=== PATIENT | female | born 1955 | race Caucasian/White ===

== ENCOUNTER → 2018-01-11 | Outpatient (CLI) | payer MEDICARE, MEDICAID ==
--- NOTE | 2018-01-11 16:21 | WOMENS IMAGING REPORT ---
EXAM DESCRIPTION: 3D SCREENING MAMMO BILAT COMPLETED DATE/TIME: 01/11/2018 2:27 pm REASON FOR STUDY: BILATERAL SCREENING MAMMO 3D/Z12.31 Z12.31 ENCNTR SCREEN MAMMOGRAM FOR MALIGNANT NEOPLASM OF APOLINAR COMPARISON: None. TECHNIQUE: Standard craniocaudal and mediolateral oblique views of each breast recorded using digita l acquisition and breast tomosynthesis. LIMITATIONS: None. FINDINGS: No masses, calcifications or architectural distortion. No areas of suspicion. Read with the assistance of CAD. .[facility] - R2 Cenova Version 1.3 .[facility] Imaging - R2 Cenova Version 1.3 .[facility] Imaging - R2 Cenova Version 2.4 .[facility] - R2 Cenova Version 2.4 .[facility] - R2 Motor Vehicle Examiner Version 9.2 IMPRESSION: NORMAL MAMMOGRAM. BIRADS 1. BREAST DENSITY: b. There are scattered areas of fibroglandular density. BIRAD: 1 NEGATIVE RECOMMENDATION: ROUTINE SCREENING Please continue yearly bilateral screening tomosynthesis in December 2018 COMMENT: The patient has been notified of the results by letter per SA requirements. Additional no tification policies are in place for contacting patient with suspicious or incomplete findings. Quality ID #[id number]: The [employer] recommends an annual screening mammogram for women aged 40 years or over. This facility utilizes a reminder system to ensure that all patients receive reminder letters, and/or direct phone calls for appointments. This includes reminders for routine scr eening mammograms, diagnostic mammograms, or other Breast Imaging Interventions when appropriate. Th is patient will be placed in the appropriate reminder system. The [employer] (ACR) has developed recommendations for screening MRI of the breast s in certain patient populations, to be used in conjunction with mammography. Breast MRI surveillanc e may be appropriate for women with more than 20% lifetime risk of developing breast cancer as deter mined by genetic testing, significant family history of the disease, or history of mantle radiation f or Hodgkins Disease. ACR Practice Guidelines 2008. DBT Technology DBT is a type of tomographic mammography. With conventional mammography, overlapping breast tissue ma y make lesions difficult to detect, even with good compression. DBT uses an x-ray tube that rotates a round the breast, taking images at different angles. These images are then combined to create thin sl ices of the breast that the radiologist can view as a 3D reconstruction. The [employer] unit can perform full-field digital mammograms (2D imaging); or DBT (3D imaging); or both, in a combination mode that quickly performs both the mammogram and the tomosynthesis scan while the breast is still compressed. PQRS 6045F: Fluoroscopic imaging is not utilized for breast tomosynthesis. TECHNICAL DOCUMENTATION: FINDING NUMBER: (1) ASSESSMENT: (1) JOB ID: [id number] [employer]- All Rights Reserved Reading location - IP/workstation name: [facility]
== END ==
LOC: WI 13:22
PROVIDERS: ATTEND Internal Medicine
DX: Z12.31 Encounter for screening mammogram for malignant neoplasm of breast (principal)
CPT/HCPCS: 77063; 77067

== ENCOUNTER 2018-04-13 17:33 | Emergency (ER) | payer MEDICARE, MEDICAID ==
[2018-04-13 17:44] VITALS: BP 154/80
[2018-04-13] MEDS ORDERED: ACETAMINOPHEN 325 MG TABLET PO ONE (18:07)
--- NOTE | 2018-04-13 18:12 | ER Document Report ---
HPI - HPI Time Seen by Provider: 04/13/18 17:54 Pain Level: 3 Notes: Patient is a 62-year-old female with a history of hypertension and chronic neck/back pain with history of fusions who presents to the emergency department complaining of injuring her head, right side mid back, and left hand after falling on pavement prior to arrival. Patient states that her dog was trying to run away from her when she had a lesion in somehow lost her footing in the process of falling down on her buttock and then balancing her head off of the ground thereafter. She is not on any blood thinning medications. Patient did not have any loss of consciousness or nausea/vomiting. She has been able to ambulate without any difficulties. Patient states that she does have some swelling to the top back of her head. Patient states that she also fell hurt her palm trying to stop her fall. No other concerns or complaints. Denies any fever, neck pain, changes in vision/speech/mentation/hearing, URI, sore throat, chest pain, palpitations, syncope, cough, shortness of breath, wheeze, dyspnea, abdominal pain, nausea/vomiting/diarrhea, urinary retention, dysuria, hematuria, loss of control of bowel or bladder, numbness/tingling, saddle anesthesia, muscle paralysis/weakness, or rash. - ROS Systems Reviewed and Negative: Yes All other systems reviewed and negative - CONSTITUTIONAL Constitutional: DENIES: Fever, Chills Past Medical History - Social History Smoking Status: Current Every Day Smoker Frequency of alcohol use: None Drug Abuse: None Family History: Reviewed & Not Pertinent Patient has suicidal ideation: No Patient has homicidal ideation: No - Past Medical History Cardiac Medical History: Reports: Hx Hypertension Renal/ Medical History: Denies: Hx Peritoneal Dialysis Past Surgical History: Reports: Hx Cholecystectomy, Hx Orthopedic Surgery - back surgery, neck and b/l wrist Vertical Provider Document - CONSTITUTIONAL Agree With Documented VS: Yes Notes: PHYSICAL EXAMINATION: accompanied by female nurseKelsea GENERAL: Well-appearing, well-nourished and in no acute distress. A&Ox4. Answers questions appropriately. HEAD: There is a small hematoma noted to the posterior superior head. + associated tenderness. No galloway sign EYES: Pupils equal round and reactive to light, extraocular movements intact, sclera anicteric, conjunctiva are normal. No raccoon eyes/entrapment. No tenderness. ENT: EAC clear b/l. TM's intact b/l without erythema, fluid, or perforation. Nares patent and without discharge. oropharynx clear without exudates. No tonsilar hypertrophy or erythema. Moist mucous membranes. No sinus tenderness. No hemotympanum/CSF discharge. NECK: Normal range of motion, supple without lymphadenopathy. No rigidity. No midline tenderness. Chest: no ecchymosis. No flail chest. equal rise/fall. Non-tender LUNGS: Breath sounds clear to auscultation bilaterally and equal. No wheezes rales or rhonchi. HEART: Regular rate and rhythm without murmurs, rubs, gallops. ABDOMEN: Soft, nontender, nondistended abdomen. No guarding, no rebound. Normal bowel sounds present. No ecchymosis. Musculoskeletal: Ext's b/l: FROM to passive/active. Strength 5+/5. No deficits noted. + tenderness to the proximal palm left hand with small ecchymosis noted to it. No other bony tenderness of extremities. N/V intact distal. Back: FROM to passive/active. Strength 5+/5. No vertebral point tenderness, stepoffs, or deformities. No other bony tenderness or ecchymosis. SLR negative b/l. + tenderness to the rt thoracic back. Extremities: No cyanosis, clubbing, or edema b/l. Peripheral pulses 2+. Capillary refill less than 2 seconds. NEUROLOGICAL: NIH 0. GCS 15. Cranial nerves grossly intact. Normal speech, normal gait. Normal sensory, motor exams. Reflexes 2+ b/l. MAX's negative. Pronator drift negative. Heel/chun, finger/nose wnl. Rhomberg negative. PSYCH: Normal mood, normal affect. SKIN: Warm, Dry, normal turgor, no rashes or lesions noted. - INFECTION CONTROL TRAVEL OUTSIDE OF THE [place] IN LAST 30 DAYS: No Course - Re-evaluation Re-evalutation: 04/13/18 19:13 Patient is an afebrile, well-hydrated, 62-year-old female who presents to the emergency department with a head contusion as well as pain to her hand, arm, buttock, and thoracic back. Vitals are acceptable without significant tachycardia, tachypnea, or hypoxia. PE is otherwise unremarkable for any focal neurological deficits, neurovascular, mass, obvious tendon/leg rupture, obvious fracture/dislocation, septic joint. CT scans and x-rays were unremarkable for any acute pathology. See reports. Patient was given Tylenol p.o. Patient is nontoxic-appearing and is tolerating p.o. without difficulty. She is able to ambulate and weight-bear without difficulties. No other labs or imaging warranted at this time based on H&P. NIH 0, GCS 15, cranial nerves grossly intact. Low suspicion for any meningitis, fracture, expanding/ruptured AAA, cauda equina syndrome, epidural mass lesion/abscess, herniated disc causing severe spinal stenosis, acute intracranial process, or other systemic infection at this time. Patient is aware that this condition can change from initial presentation and that she needs monitor symptoms closely for any acute changes. Pt given [place] dispense. Conservative measures otherwise for symptoms. Recheck with your PCM in 2-3 days. Consider consult with orthopedic/physical therapy. Return to the ED with any worsening/concerning symptoms otherwise as reviewed in discharge. Patient is in agreement. - Vital Signs Vital signs: Temp Pulse Resp BP Pulse Ox 98.2 F 94 18 154/80 H 98 04/13/18 17:43 04/13/18 17:43 04/13/18 17:43 04/13/18 17:43 04/13/18 17:43 Discharge - Discharge Clinical Impression: Left hand pain, Buttock pain, Right arm pain Head injury Qualifiers: Encounter type: initial encounter Qualified Code(s): S09.90XA - Unspecified injury of head, initial encounter Right-sided thoracic back pain Qualifiers: Chronicity: acute Qualified Code(s): M54.6 - Pain in thoracic spine Condition: Stable Disposition: HOME, SELF-CARE Instructions: Head Injury Precautions ([facility]) Additional Instructions: Rest, Ice/cool compress, elevation Tylenol/ibuprofen as needed Light stretches daily Strength exercises as able Moist heat and massage may help F/u with your PCP in 2-3 days for a recheck Consider consult(s) with Neurology/orthopedics for ongoing/worsening symptoms Return to the ED with any worsening symptoms and/or development of fever, h eadache, changes in behavior/mentation/vision/speech, chest pain, palpitations, syncope, shortness of breath, trouble breathing, abdominal pain, n/v/d, blood in stool/urine, loss of control of bowel/bladder, urinary retention, muscle weakness/paralysis, saddle anesthesia, numbness/tingling, or other worsening symptoms that are concerning to you. Forms: Elevated Blood Pressure, Smoking Cessation Education Referrals: DIANE MCCORD MD [Primary Care Provider] - Follow up as needed [facility] [Provider Group] - Follow up as needed
--- NOTE | 2018-04-13 18:36 | RADIOLOGY REPORT (SQ) ---
EXAM DESCRIPTION: CT HEAD WITHOUT COMPLETED DATE/TIME: 04/13/2018 6:22 pm REASON FOR STUDY: injury s/p fall COMPARISON: None. TECHNIQUE: Axial images acquired through the brain without intravenous contrast. Images reviewed wi th bone, brain and subdural windows. Images stored on PACS. All CT scanners at this facility use dose modulation, iterative reconstruction, and/or weight based d osing when appropriate to reduce radiation dose to as low as reasonably achievable (ALARA). [facility]: Dose Right [facility]: CareDose [facility]: Dose Right [facility]: Teradose 4D [facility]: [employer] RADIATION DOSE: CT Rad equipment meets quality standard of care and radiation dose reduction techniq ues were employed. CTDIvol: 53.2 mGy. DLP: 1044 mGy-cm. mGy. LIMITATIONS: None. FINDINGS: VENTRICLES: Normal size and contour. CEREBRUM: No masses. No hemorrhage. No midline shift. No evidence for acute infarction. Normal gra y/white matter differentiation. No areas of low density in the white matter. CEREBELLUM: No masses. No hemorrhage. No alteration of density. No evidence for acute infarction. EXTRAAXIAL SPACES: No fluid collections. No masses. ORBITS AND GLOBE: No intra- or extraconal masses. Normal contour of globe without masses. CALVARIUM: No fracture. PARANASAL SINUSES: No fluid or mucosal thickening. SOFT TISSUES: Mild right parietal soft tissue swelling. OTHER: No other significant finding. IMPRESSION: No acute intracranial findings. EVIDENCE OF ACUTE STROKE: NO. COMMENT: Quality ID # [id number]: Final reports with documentation of one or more dose reduction techniques (e.g., Automated exposure control, adjustment of the mA and/or kV according to patient size, use of iterative reconstruction technique) TECHNICAL DOCUMENTATION: JOB ID: [id number] [place]-72 2010 [employer]- All Rights Reserved Reading location - IP/workstation name: [employer]
--- NOTE | 2018-04-13 18:40 | RADIOLOGY REPORT (SQ) ---
EXAM DESCRIPTION: CT CERVICAL SPINE WITHOUT COMPLETED DATE/TIME: 04/13/2018 6:22 pm REASON FOR STUDY: injury s/p fall COMPARISON: None. TECHNIQUE: Axial images acquired through the cervical spine without intravenous contrast. Images re viewed with lung, soft tissue and bone windows. Reconstructed coronal and sagittal MPR images review ed. Images stored on PACS. All CT scanners at this facility use dose modulation, iterative reconstruction, and/or weight based d osing when appropriate to reduce radiation dose to as low as reasonably achievable (ALARA). [facility]: Dose Right [facility]: CareDose [facility]: Dose Right [facility]: Teradose 4D [facility]: [employer]Hand RADIATION DOSE: CT Rad equipment meets quality standard of care and radiation dose reduction techniq ues were employed. CTDIvol: 22.0 mGy. DLP: 440 mGy-cm. mGy. LIMITATIONS: None. FINDINGS: ALIGNMENT: Anatomic. MINERALIZATION: Normal. VERTEBRAL BODIES: No fractures or dislocation. DISCS: Multilevel disc space narrowing with osteophytes, greatest at the C6-7 level. . FACETS, LATERAL MASSES, POSTERIOR ELEMENTS: Facet arthropathy. No fractures. No dislocation. No ac josh findings. HARDWARE: Anterior fusion hardware at the C5-6 levels. VISUALIZED RIBS: No fractures. LUNG APICES AND SOFT TISSUES: No significant or acute findings. OTHER: No other significant finding. IMPRESSION: CHRONIC DEGENERATIVE CHANGES. NO ACUTE FINDINGS.Anterior fusion hardware at the C5-6 le vels. TECHNICAL DOCUMENTATION: JOB ID: [id number] [place]-72 Quality ID # [id number]: Final reports with documentation of one or more dose reduction techniques (e.g., Au tomated exposure control, adjustment of the mA and/or kV according to patient size, use of iterative reconstruction technique) 2010 [employer] All Rights Reserved Reading location - IP/workstation name: [email or web address]'s in [employer]
--- NOTE | 2018-04-13 18:53 | RADIOLOGY REPORT (SQ) ---
EXAM DESCRIPTION: HAND LEFT 3 VIEWS COMPLETED DATE/TIME: 04/13/2018 6:39 pm REASON FOR STUDY: injury s/p fall COMPARISON: None. EXAM PARAMETERS: NUMBER OF VIEWS: Three views. TECHNIQUE: AP, lateral and oblique radiographic images acquired of the left hand. LIMITATIONS: None. FINDINGS: MINERALIZATION: Normal. BONES: No acute fracture or dislocation. Mild osteoarthritis in the interphalangeal joints and 1st c arpometacarpal joint. No worrisome bone lesions. JOINTS: No effusion. SOFT TISSUES: No significant soft tissue swelling. No radiopaque foreign body. OTHER: No other significant finding. IMPRESSION: NO FRACTURE. TECHNICAL DOCUMENTATION: JOB ID: [id number] [place]-72 2010 [employer]- All Rights Reserved Reading location - IP/workstation name: [employer]
--- NOTE | 2018-04-13 18:53 | RADIOLOGY REPORT (SQ) ---
EXAM DESCRIPTION: HUMERUS RIGHT COMPLETED DATE/TIME: 04/13/2018 6:39 pm REASON FOR STUDY: pain s/p fall COMPARISON: None. NUMBER OF VIEWS: Two views. TECHNIQUE: Two radiographic images were acquired of the right humerus to include elbow and shoulder in at least one projection. LIMITATIONS: None. FINDINGS: MINERALIZATION: Normal. BONES: No acute fracture or dislocation. No worrisome bone lesions. SOFT TISSUES: No obvious swelling or foreign body. OTHER: No other significant finding. IMPRESSION: No fracture. TECHNICAL DOCUMENTATION: JOB ID: [id number] [place]-72 2010 [employer]- All Rights Reserved Reading location - IP/workstation name: [email or web address]
--- NOTE | 2018-04-13 18:58 | RADIOLOGY REPORT (SQ) ---
EXAM DESCRIPTION: PELVIS AP COMPLETED DATE/TIME: 04/13/2018 6:39 pm REASON FOR STUDY: pain s/p fall COMPARISON: None. NUMBER OF VIEWS: One view TECHNIQUE: AP Pelvis LIMITATIONS: None. FINDINGS: MINERALIZATION: Normal. HIPS: No acute fracture or dislocation. No worrisome bone lesions. PELVIS AND SACRUM: No acute fracture or dislocation. No worrisome bone lesions. PUBIS AND ISCHIUM: No acute fracture. LOWER LUMBAR SPINE: There is lumbar fusion hardware, L3-L5. SOFT TISSUES: No findings. OTHER: No other significant finding. IMPRESSION: No fracture identified. COMMENT: Pelvic fractures are often occult on plain radiographs. If strong clinical suspicion for f racture, recommend CT or MR. TECHNICAL DOCUMENTATION: JOB ID: [id number] [place]-72 2010 [employer]- All Rights Reserved Reading location - IP/workstation name: [email or web address]
--- NOTE | 2018-04-13 19:00 | RADIOLOGY REPORT (SQ) ---
EXAM DESCRIPTION: T SPINE AP/LAT COMPLETED DATE/TIME: 04/13/2018 6:39 pm REASON FOR STUDY: injury s/p fall COMPARISON: None. NUMBER OF VIEWS: Two views. TECHNIQUE: AP and lateral radiographic images acquired of the thoracic spine. LIMITATIONS: None. FINDINGS: MINERALIZATION: Normal. ALIGNMENT: Normal. No significant scoliosis. VERTEBRAE: No fracture or bone lesion. Maintained height, normal segmentation. DISCS: Multilevel disc space narrowing with osteophytes. HARDWARE: None in the spine. MEDIASTINUM AND SOFT TISSUES: Normal heart size and aortic contour. No soft tissue abnormality. VISUALIZED LUNG LOPEZ: Clear. OTHER: No other significant finding. IMPRESSION: SPONDYLOSIS WITHOUT BONE LESION OR FRACTURE. TECHNICAL DOCUMENTATION: JOB ID: [id number] [place]-72 2010 [employer]- All Rights Reserved Reading location - IP/workstation name: [employer]
[2018-04-13] MEDS ORDERED: HYDROCODONE/ACETAMINOPHEN 5-325 MG (6 TAB/ER DISP) PO PRN (19:18)
== END 2018-04-13 19:30 | disposition home or self-care (01) ==
LOC: ER 17:33
DX: S09.90XA Unspecified injury of head, initial encounter (principal); R22.0 Localized swelling, mass and lump, head; M54.6 Pain in thoracic spine; M79.642 Pain in left hand; M79.10 Myalgia, unspecified site; M79.601 Pain in right arm; M54.2 Cervicalgia; M54.9 Dorsalgia, unspecified; I10 Essential (primary) hypertension; G89.29 Other chronic pain; W19.XXXA Unspecified fall, initial encounter; F17.200 Nicotine dependence, unspecified, uncomplicated
CPT/HCPCS: 99284; 73130; 73060; 72170; 72070; 70450; 72125; A9270 ×2

== ENCOUNTER 2018-08-08 18:57 | Emergency (ER) | payer MEDICARE, MEDICAID ==
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
[2018-08-08] MEDS ORDERED: NEOMY/BACITRAC ZN/POLY OINT 15 GM TP ONE (20:15)
[2018-08-08] MEDS ORDERED: DIPH/PERTUSS(ACELL)/TETANUS VAC/PF 0.5 ML SYR (>=10YO) IM ONE (20:15)
--- NOTE | 2018-08-08 20:25 | ER Document Report ---
Addendum entered and electronically signed by DEMIAN RIVERA PA-C 08/08/18 20:49: Discharge - Discharge Clinical Impression: Abrasion or friction burn of buttock with infection Condition: Good Disposition: HOME, SELF-CARE Instructions: [place] ([facility]), Wound Infection ([facility]) Prescriptions: Oxycodone HCl/Acetaminophen [Percocet 5-325 mg Tablet] 1 tab PO Q6HP PRN #15 tablet PRN Reason: Cephalexin Monohydrate [Keflex 500 mg Capsule] 500 mg PO Q6H 40 Days #10 capsule Cephalexin Monohydrate [Keflex 500 mg Capsule] 500 mg PO Q6H 10 Days #40 capsule Referrals: DIANE MCCORD MD [Primary Care Provider] - 08/10/18 Original Note: ED General - General Chief Complaint: Thermal Burn Stated Complaint: BURN Time Seen by Provider: 08/08/18 19:10 Primary Care Provider: DIANE MCCORD MD [Primary Care Provider] - Follow up as needed Mode of Arrival: Ambulatory Information source: Patient TRAVEL OUTSIDE OF THE [place] IN LAST 30 DAYS: No - HPI Patient complains to provider of: Left buttock burn Onset: Last week Onset/Duration: Gradual Quality of pain: Cramping Severity: Severe Pain Level: 4 Associated symptoms: denies: Chills, Fever Exacerbated by: Sitting Relieved by: Denies Similar symptoms previously: No Recently seen / treated by doctor: No Notes: 63-year-old white female coming in today with left buttock burn. 1 week ago was laying on a heating pad. States she was on it for about an hour. Shortly after she realized that she had developed a blister on her left buttock. Apparently the blister eventually drained itself and patient thought that it was getting better and now on his started getting extremely tender and warm. Patient does not have any diabetes nor does she have any other immune compromise. She denies having fevers and shaking chills. - Related Data Allergies/Adverse Reactions: Sulfa (Sulfonamide Antibiotics) Allergy (Verified 04/13/18 18:04) Past Medical History - General Information source: Patient - Social History Smoking Status: Never Smoker Frequency of alcohol use: None Drug Abuse: None Lives with: Family Family History: Reviewed & Not Pertinent Patient has suicidal ideation: No Patient has homicidal ideation: No - Past Medical History Cardiac Medical History: Reports: Hx Hypertension Renal/ Medical History: Denies: Hx Peritoneal Dialysis Past Surgical History: Reports: Hx Cholecystectomy, Hx Orthopedic Surgery - back surgery, neck and b/l wrist Review of Systems - Review of Systems Notes: Constitutional: No fevers. No chills. EENT: No eye redness. No eye pain. No ear pain. No sore throat. Cardiovascular: No chest pain. No palpitations. Respiratory: No cough. No shortness of breath. No respiratory distress. Gastrointestinal: No abdominal pain. No nausea, vomiting, or diarrhea. Genitourinary: Atraumatic. No lesions. No pain. No discharge. Musculoskeletal: Atraumatic. No swelling. No deformities. Skin: Burn to left buttock Lymphatic: No swollen lymph nodes. Neurologic: No headache. No syncope. Psychiatric: No suicidal or homicidal ideation. Physical Exam - Vital signs Vitals: Temp Pulse Resp BP Pulse Ox 98.1 F 100 16 141/77 H 97 08/08/18 19:03 08/08/18 19:03 08/08/18 19:03 08/08/18 19:03 08/08/18 19:03 - Notes Notes: General: Well-developed, well-nourished. In no acute distress. Non-toxic appearing. Cardiac: Well-perfused. Regular rate and rhythm. No murmurs, rubs, or gallops. Pulmonary: No respiratory distress. No cyanosis. Bilateral lung fiels are clear to auscultation. Abdominal: Non-distended. Non-rigid. Bowels sounds are present in all four quadrants. No guarding or rebound. HEENT: Head is atraumatic. Conjunctivae not reddened. No tearing. PERRL. EOMI. Orbits atraumatic. No periorbital swelling or erythema. Oropharynx is without erythema, swelling, or exudates. Neck: Supple. No adenopathy. No meningismus. Dermatologic: Oval-shaped ulcer to left lateral buttock it was 2 cm wide by 4 cm tall. There is a erythematous base. And there is a scab covering the top. There is no subcu emphysema or crepitus on palpation. No suspicion for necrotizing fasciitis. No lymphangitis Chest: Atraumatic. No chest wall tenderness to palpation. Musculoskeletal: Moves all extremities well. No range of motion deficits. no muscular or joint tenderness. No paraspinal muscle tenderness. no midline spinal tenderness or step-off. Genitourinary: Examination deferred Neurologic: No gross neurologic deficits. Psychiatric: Normal mood. Course - Re-evaluation Re-evalutation: 08/08/18 20:35 We will update the patient's Tdap. Put some Neosporin and nonstick dressing on the wound. We will start her on Keflex empirically. We will follow her up with her doctor on Thursday for recheck. - Vital Signs Vital signs: Temp Pulse Resp BP Pulse Ox 98.1 F 100 16 141/77 H 97 08/08/18 19:03 08/08/18 19:03 08/08/18 19:03 08/08/18 19:03 08/08/18 19:03 Discharge - Discharge Clinical Impression: Abrasion or friction burn of buttock with infection Condition: Good Disposition: HOME, SELF-CARE Instructions: [place] ([facility]), Wound Infection ([facility]) Prescriptions: Cephalexin Monohydrate [Keflex 500 mg Capsule] 500 mg PO Q6H 40 Days #10 capsule Referrals: DIANE MCCORD MD [Primary Care Provider] - 08/10/18
[2018-08-08] MEDS ORDERED: CEPHALEXIN 500 MG CAPSULE PO ONE (20:35)
[2018-08-08] MEDS ORDERED: BACITRACIN ZINC OINTMENT 15 GM TP ONE (20:36)
[2018-08-08] MEDS ORDERED: OXYCODONE-ACETAMINOPHEN 5-325 MG TABLET PO ONE (20:40)
[2018-08-08 20:57] VITALS: BP 143/77
== END 2018-08-08 20:57 | disposition home or self-care (01) ==
LOC: ER 18:57
DX: L08.9 Local infection of the skin and subcutaneous tissue, unspecified (principal); T21.25XA Burn of second degree of buttock, initial encounter; I10 Essential (primary) hypertension; Z88.2 Allergy status to sulfonamides; Z23 Encounter for immunization
CPT/HCPCS: 99283; 90471; 90715; J3490 ×2; A9270 ×2

== ENCOUNTER → 2018-09-29 | Outpatient (CLI) | payer MEDICARE, MEDICAID ==
--- NOTE | 2018-09-29 15:10 | RADIOLOGY REPORT (SQ) ---
EXAM DESCRIPTION: SHOULDER RIGHT 2 OR MORE VIEWS COMPLETED DATE/TIME: 09/29/2018 2:58 pm REASON FOR STUDY: M25.511 PAIN IN RIGHT SHOULDER M25.511 PAIN IN RIGHT SHOULDER COMPARISON: None. NUMBER OF VIEWS: Three views. TECHNIQUE: Internal rotation, external rotation, and Y view images acquired of the right shoulder. LIMITATIONS: None. FINDINGS: MINERALIZATION: Normal. BONES: No acute fracture. No worrisome bone lesions. JOINTS: No dislocation. 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 Prominent inf erior projecting distal acromial osteophytes. VISUALIZED LUNGS AND RIBS: No pneumothorax. No rib fracture. SOFT TISSUES: No radiopaque foreign body. OTHER: No other significant finding. IMPRESSION: No evidence of acute bony abnormality. Acromioclavicular osteoarthropathy with prominent inferior projecting acromial osteophytes which can be a cause of patient pain. TECHNICAL DOCUMENTATION: JOB ID: [id number] [employer]- All Rights Reserved Reading location - IP/workstation name: [email or web address]
== END ==
LOC: RAD 14:26
PROVIDERS: ATTEND Student in an Organized Health Care Education/Training Program
DX: M25.511 Pain in right shoulder (principal)

== ENCOUNTER 2018-10-10 16:11 | Emergency (ER) | payer MEDICARE, MEDICAID ==
--- NOTE | 2018-10-10 17:56 | ER Document Report ---
ED Medical Screen (RME) - General Chief Complaint: Abdominal Pain Stated Complaint: ABDOMINAL PAIN Time Seen by Provider: 10/10/18 17:50 Primary Care Provider: DIANE MCCORD MD [Primary Care Provider] - Follow up as needed TRAVEL OUTSIDE OF THE [place] IN LAST 30 DAYS: No - HPI Notes: 10/10/18 17:54 Patient is a 63-year-old female with a history of multiple back surgeries, cholecystectomy, lap band, C-sections who presents complaining of left upper quadrant abdominal pain in the area of her lap band procedure. Patient is not sure if something moved or shifted and has had a dull and occasional sharp pain to this area. The pain does not radiate. She has had decreased p.o. intake. She is still having normal bowel movements with the last one this morning. She is urinating normally. Denies CORNEJO, fever, neck pain, URI, CP, SOB, n/v/d, melena, hematochezia, dysuria, or rash. I have treated and performed a rapid initial assessment of this patient. A comprehensive ED assessment and evaluation of the patient, analysis of test results and completion of medical decision making process will be conducted by additional ED providers. PHYSICAL EXAMINATION: GENERAL: Well-appearing, well-nourished and in no acute distress. A&Ox4. Answers questions appropriately. LUNGS: Breath sounds clear to auscultation bilaterally and equal. No wheezes rales or rhonchi. HEART: Regular rate and rhythm without murmurs, rubs, gallops. ABDOMEN: Soft, nondistended abdomen. No guarding, no rebound. Normal bowel sounds present. No CVA tenderness bilaterally. + LUQ tenderness (cannot elicit thorough abd exam w/o bed, however). - Related Data Allergies/Adverse Reactions: Sulfa (Sulfonamide Antibiotics) Allergy (Verified 10/10/18 16:12) Past Medical History - Past Medical History Cardiac Medical History: Reports: Hx Hypertension Renal/ Medical History: Denies: Hx Peritoneal Dialysis Past Surgical History: Reports: Hx Cholecystectomy, Hx Orthopedic Surgery - back surgery, neck and b/l wrist Physical Exam - Vital signs Vitals: Temp Pulse Resp BP Pulse Ox 98.9 F 76 16 173/76 H 100 10/10/18 16:26 10/10/18 16:26 10/10/18 16:26 10/10/18 16:26 10/10/18 16:26 Course - Vital Signs Vital signs: Temp Pulse Resp BP Pulse Ox 98.9 F 76 16 173/76 H 100 10/10/18 16:26 10/10/18 16:26 10/10/18 16:26 10/10/18 16:26 10/10/18 16:26 Doctor's Discharge - Discharge Referrals: DIANE MCCORD MD [Primary Care Provider] - Follow up as needed
[2018-10-10 18:21] LABS: ABSOLUTE EOSINOPHILS # (AUTO) 0.2 10^3/uL (0.0-0.6); ABSOLUTE LYMPHOCYTES (AUTO) 2.1 10^3/uL (0.5-4.7); ABSOLUTE MONOCYTES (AUTO) 0.6 10^3/uL (0.1-1.4); ABSOLUTE NEUT (AUTO) 6.2 10^3/uL (1.7-8.2); BASOPHILS % (AUTO) 0.4 % (0-2); EOSINOPHILS % (AUTO) 2.4 % (0-6); HEMATOCRIT 38.8 % (36.0-47.0); HEMOGLOBIN 13.1 g/dL (12.0-15.5); LYMPHOCYTES % (AUTO) 23.2 % (13-45); MEAN CORPUSCULAR HEMOGLOBIN 28.5 pg (27.0-33.4); MEAN CORPUSCULAR HGB CONC 33.7 g/dL (32.0-36.0); MEAN CORPUSCULAR VOLUME 85 fl (80-97); MONOCYTES % (AUTO) 6.8 % (3-13); PLATELET COUNT 168 10^3/uL (150-450); RED BLOOD COUNT 4.58 10^6/uL (3.72-5.28); RED CELL DISTRIBUTION WIDTH 14.6 % (11.5-14.0); SEGMENTED NEUTROPHILS % (AUTO) 67.2 % (42-78); TOTAL CELLS COUNTED % (AUTO) 100 %; WHITE BLOOD COUNT 9.2 10^3/uL (4.0-10.5)
[2018-10-10] MEDS ORDERED: ONDANSETRON HCL INJ/PF 4 MG/2 ML SDV IV ONE (18:28)
[2018-10-10 18:33] LABS: APPEARANCE,URINE SLIGHTLY-CLOUDY; BILIRUBIN,URINE NEGATIVE (NEGATIVE); COLOR,URINE YELLOW; GLUCOSE, URINE NEGATIVE (NEGATIVE); KETONES,URINE NEGATIVE (NEGATIVE); LEUKOCYTE ESTERASE,URINE NEGATIVE (NEGATIVE); NITRITE,URINE NEGATIVE (NEGATIVE); PROTEIN,URINE NEGATIVE (NEGATIVE); URINE SPECIFIC GRAVITY 1.018; UROBILINOGEN,URINE NEGATIVE mg/dL (<2.0)
[2018-10-10 18:39] LABS: ALBUMIN 4.4 g/dL (3.5-5.0); ALKALINE PHOSPHATASE 162 U/L (38-126); ANION GAP 7 (5-19); ASPARTATE AMINO TRANSFERASE 47 U/L (14-36); BILIRUBIN,DIRECT 0.3 mg/dL (0.0-0.4); BILIRUBIN,TOTAL 0.5 mg/dL (0.2-1.3); BLOOD UREA NITROGEN 17 mg/dL (7-20); CALCIUM 9.9 mg/dL (8.4-10.2); CARBON DIOXIDE 30 mmol/L (22-30); CHLORIDE 101 mmol/L (98-107); GLUCOSE 111 mg/dL (75-110); POTASSIUM 4.6 mmol/L (3.6-5.0)
[2018-10-10] MEDS ORDERED: MORPHINE SULFATE 10 MG/ML INJ IV ONE (20:18)
--- NOTE | 2018-10-10 21:04 | RADIOLOGY REPORT (SQ) ---
EXAM DESCRIPTION: CT ABDOMEN PELVIS WITH IV CONTRAST COMPLETED DATE/TME: 10/10/2018 00:00 CLINICAL HISTORY: 63 years, Female, h/o lap band, LUQ pain COMPARISON: None. TECHNIQUE: Contrast enhanced CT of the abdomen/pelvis was performed. Coronal and sagittal reformations were created. Images stored on PACS. All CT scanners at this facility use dose modulation, iterative reconstruction, and/or weight based dosing when appropriate to reduce radiation dose to as low as reasonably achievable (ALARA). [facility]: Dose Right [facility]: CareDose [facility]: Dose Right [facility]: Teradose 4D [facility]: [email or web address] LIMITATIONS: None. FINDINGS: Limited evaluation of the lower chest reveals bands of opacity about the lingula and left lower lobe, indicating atelectasis/scar. The liver, spleen, pancreas, and right adrenal gland appear normal. There is nodular enlargement of the left adrenal gland measuring 1.5 x 1.3 cm in size. It measures 67 Hounsfield units internally on this contrast-enhanced exam. Gallbladder is absent. Both kidneys enhance symmetrically. No hydronephrosis or hydroureter. The urinary bladder is well distended. It demonstrates a tiny focus of gas density, nonspecific. Uterus and both ovaries show no suspicious abnormality. Small and large bowel are normal in caliber. No evidence of bowel obstruction. The appendix is not visualized. Gastric lap band is in position. Vascular structures opacify with contrast normally. No suspicious lymphadenopathy is appreciated. There are no drainable fluid collections. Bone windows show postsurgical changes of posterior fusion spanning the lower lumbar spine, specifically L3-L5. No destructive osseous lesions. IMPRESSION: No acute abnormality within the abdomen or pelvis. Indeterminate nodular enlargement of the left adrenal gland. In the absence of known primary malignancy, this most likely represent a benign adenoma. However, current recommendations suggest follow-up adrenal protocol CT in one year to confirm that this represents a benign adenoma. If this lesion remains stable at that time, no additional follow-up would be necessary. TECHNICAL DOCUMENTATION: Quality ID # 436: Final reports with documentation of one or more dose reduction techniques (e.g., Automated exposure control, adjustment of the mA and/or kV according to patient size, use of iterative reconstruction technique) copyright 2011 [employer]- All Rights Reserved
[2018-10-10] MEDS ORDERED: HYDROMORPHONE HCL INJ/PF 2 MG/ML AMPULE IV ONE ×2 (21:38→21:52)
[2018-10-10] MEDS ORDERED: MAG HYDROX/AL HYDROX/SIMETH SUSP 30 ML UDCUP PO ONE (21:39)
[2018-10-10] MEDS ORDERED: METOCLOPRAMIDE HCL ORAL SOLN 10 MG/10 ML UDCUP PO ONE (21:39)
[2018-10-10] MEDS ORDERED: LIDOCAINE 2% VISCOUS SOLN 20 ML UDCUP PO ONE (21:39)
--- NOTE | 2018-10-10 21:39 | ER Document Report ---
ED General - General Chief Complaint: Abdominal Pain Stated Complaint: ABDOMINAL PAIN Time Seen by Provider: 10/10/18 17:50 Primary Care Provider: DIANE MCCORD MD [Primary Care Provider] - Follow up in 3-5 days Mode of Arrival: Ambulatory Information source: Patient Notes: Patient is a 63-year-old female with a history of multiple back surgeries, cholecystectomy, lap band, C-sections who presents complaining of left upper quadrant abdominal pain in the area of her lap band procedure. Patient is not sure if something moved or shifted and has had a dull and occasional sharp pain to this area. The pain does not radiate. She has had decreased p.o. intake. She is still having normal bowel movements with the last one this morning. She is urinating normally. Denies CORNEJO, fever, neck pain, URI, CP, SOB, n/v/d, melena, hematochezia, dysuria, or rash. TRAVEL OUTSIDE OF THE [place] IN LAST 30 DAYS: No - HPI Onset: Other Onset/Duration: Gradual, Intermittent, Persistent Quality of pain: Achy, Throbbing Severity: Mild Pain Level: 1 Associated symptoms: Nausea. denies: Body/muscle aches, Chest pain, Nonproductive cough, Diarrhea, Headache, Vomiting, Sweating, Weakness Exacerbated by: Denies Relieved by: Denies Similar symptoms previously: Yes Recently seen / treated by doctor: No - Related Data Allergies/Adverse Reactions: Sulfa (Sulfonamide Antibiotics) Allergy (Verified 10/10/18 16:12) Past Medical History - General Information source: Patient - Social History Smoking Status: Former Smoker Chew tobacco use (# tins/day): No Frequency of alcohol use: None Drug Abuse: None Lives with: Family Family History: Reviewed & Not Pertinent Patient has suicidal ideation: No Patient has homicidal ideation: No - Past Medical History Cardiac Medical History: Reports: Hx Hypertension Renal/ Medical History: Denies: Hx Peritoneal Dialysis Past Surgical History: Reports: Hx Cholecystectomy, Hx Orthopedic Surgery - back surgery, neck and b/l wrist Review of Systems - Review of Systems Constitutional: denies: Fever EENT: denies: Difficulty swallowing Cardiovascular: denies: Chest pain Respiratory: denies: Short of breath Gastrointestinal: Abdominal pain, Nausea. denies: Abdomen distended, Diarrhea, Vomiting, Constipation, Poor appetite, Poor fluid intake, Black stools, Rectal bleeding Genitourinary: denies: Dysuria, Flank pain Female Genitourinary: denies: Vaginal discharge Musculoskeletal: denies: Muscle pain, Leg swelling Skin: denies: Rash Hematologic/Lymphatic: denies: Easy bleeding Neurological/Psychological: denies: Headaches -: Yes All other systems reviewed and negative Physical Exam - Vital signs Vitals: Temp Pulse Resp BP Pulse Ox 98.9 F 76 16 173/76 H 100 10/10/18 16:26 10/10/18 16:26 10/10/18 16:26 10/10/18 16:26 10/10/18 16:26 - Notes Notes: PHYSICAL EXAMINATION: GENERAL: Well-appearing, well-nourished and in no acute distress. HEAD: Atraumatic, normocephalic. EYES: Pupils equal round and reactive to light, extraocular movements intact, c onjunctiva are normal. ENT: Nares patent, oropharynx clear without exudates. Moist mucous membranes. NECK: Normal range of motion, supple without lymphadenopathy LUNGS: Breath sounds clear to auscultation bilaterally and equal. No wheezes rales or rhonchi. HEART: Regular rate and rhythm without murmurs ABDOMEN: Soft, nontender, nondistended abdomen. No guarding, no rebound. Palpable quarter sized mass in the left upper quadrant. No associated tenderness, erythema fluctuance or induration. Female : deferred Musculoskeletal: Normal range of motion, no pitting or edema. No cyanosis. NEUROLOGICAL: Cranial nerves grossly intact. Normal speech, normal gait. Normal sensory, motor exams PSYCH: Normal mood, normal affect. SKIN: Warm, Dry, normal turgor, no rashes or lesions noted. Course - Re-evaluation Re-evalutation: 10/13/18 09:33 Laboratory 10/10/18 10/10/18 10/10/18 16:24 18:08 18:08 WBC 9.2 RBC 4.58 Hgb 13.1 Hct 38.8 MCV 85 MCH 28.5 MCHC 33.7 RDW 14.6 H Plt Count 168 Lymph % (Auto) 23.2 [place] % (Auto) 6.8 Eos % (Auto) 2.4 Baso % (Auto) 0.4 Absolute Neuts (auto) 6.2 Absolute Lymphs (auto) 2.1 Absolute Monos (auto) 0.6 Absolute Eos (auto) 0.2 Absolute Basos (auto) 0.0 Seg Neutrophils % 67.2 Sodium 138.3 Potassium 4.6 Chloride 101 Carbon Dioxide 30 Anion Gap 7 BUN 17 Creatinine 0.73 Est GFR ( Amer) > 60 Est GFR (MDRD) Non-Af > 60 Glucose 111 H Calcium 9.9 Total Bilirubin 0.5 Direct Bilirubin 0.3 Neonat Total Bilirubin Not Reportable Neonat Direct Bilirubin Not Reportable Neonat Indirect Bili Not Reportable AST 47 H ALT 24 Alkaline Phosphatase 162 H Total Protein 8.0 Albumin 4.4 Lipase 117.3 Urine Color YELLOW Urine Appearance SLIGHTLY-CLOUDY Urine pH 7.0 Ur Specific [place] 1.018 Urine Protein NEGATIVE Urine Glucose (UA) NEGATIVE Urine Ketones NEGATIVE Urine Blood NEGATIVE Urine Nitrite NEGATIVE Urine Bilirubin NEGATIVE Urine Urobilinogen NEGATIVE Ur Leukocyte Esterase NEGATIVE Urine WBC (Auto) 2 Urine RBC (Auto) 2 Squamous Epi Cells Auto <1 Urine Mucus (Auto) RARE Urine Ascorbic Acid NEGATIVE Abdomen/Pelvis CT 10/10/18 00:00 IMPRESSION: No acute abnormality within the abdomen or pelvis. Indeterminate nodular enlargement of the left adrenal gland. In the absence of known primary malignancy, this most likely represent a benign adenoma. However, current recommendations suggest follow-up adrenal protocol CT in one year to confirm that this represents a benign adenoma. If this lesion remains stable at that time, no additional follow-up would be necessary. TECHNICAL DOCUMENTATION: Quality ID # 436: Final reports with documentation of one or more dose reduction techniques (e.g., Automated exposure control, adjustment of the mA and/or kV according to patient size, use of iterative reconstruction technique) copyright 2011 [employer]- All Rights Reserved Temp Pulse Resp BP Pulse Ox 98.1 F 72 18 151/72 H 96 10/10/18 22:15 10/10/18 22:15 10/10/18 22:15 10/10/18 22:15 10/10/18 22:15 63-year-old female presents with left upper quadrant abdominal pain. Has had mild nausea but no vomiting or diarrhea. Vital signs were reviewed and within normal limits. Patient is afebrile, mildly hypertensive and does not appear toxic or dehydrated. Abdominal exam is significant for a small palpable mass in the left upper quadrant that is not tender, erythematous or warm. Likely a lipoma. CBC is without leukocytosis or anemia. CMP is without electrolyte abnormality. Urinalysis not consistent with UTI. CT of the abdomen pelvis showed no acute abnormality. Incidental finding of likely adenoma was discussed with the patient and her daughter who is at the bedside. They have been provided copies of the CT report and were advised to follow-up with her primary care physician as repeat imaging is recommended in 1 year. Patient tolerating fluids. pain well managed. Patient was evaluated and treated as appropriate for the patient's presenting symptoms and complaint, with consideration of any critical or life threatening conditions that may be associated with their obtained history and exam as noted above. All results were discussed with patient and her daughter who is at the bedside. Patient provided the opportunity to ask questions, and express con cerns. Patient was educated on treatments based on their presumed diagnosis as noted above. At this time we will discharge the patient with return precautions and follow-up recommendations. Verbal discharge instructions given a the bedside. Medication warnings reviewed. Patient is in agreement with this plan and has verbalized understanding of return precautions. After careful consideration I feel that that patient can be safely discharged from the emergency department, they were advised to followup with a primary care physician in 2-3 days. Dictation on this chart was performed using voice recognition software and may result in unintended grammatical, spelling, syntax or errors. - Vital Signs Vital signs: Temp Pulse Resp BP Pulse Ox 98.1 F 72 18 151/72 H 96 10/10/18 22:15 10/10/18 22:15 10/10/18 22:15 10/10/18 22:15 10/10/18 22:15 - Laboratory Result Diagrams: 10/10/18 18:08 10/10/18 18:08 Laboratory results interpreted by me: 10/10/18 10/10/18 18:08 18:08 RDW 14.6 H Glucose 111 H AST 47 H Alkaline Phosphatase 162 H - Diagnostic Test Radiology reviewed: Image reviewed, Reports reviewed Discharge - Discharge Clinical Impression: Intermittent left upper quadrant abdominal pain Condition: Good Disposition: HOME, SELF-CARE Instructions: Abdominal Pain ([facility]) Additional Instructions: You have been seen in the Emergency Department (ED) for abdominal pain. Your evaluation did not identify a clear cause of your symptoms but was generally reassuring. Please follow up with your doctor as soon as possible regarding today's emergent visit and the symptoms that are bothering you. Return to the ED if your abdominal pain worsens or fails to improve, you develop bloody vomiting, bloody diarrhea, you are unable to tolerate fluids due to vomiting, fever greater than 101, or other symptoms that concern you. Prescriptions: Ondansetron [Zofran Odt 4 mg Tablet] 1 - 2 tab PO Q4H PRN #15 tab.rapdis PRN Reason: For Nausea/Vomiting Forms: Elevated Blood Pressure Referrals: DIANE MCCORD MD [Primary Care Provider] - Follow up in 3-5 days
[2018-10-10 22:16] VITALS: BP 151/72
== END 2018-10-10 22:32 | disposition home or self-care (01) ==
LOC: ER 16:11
DX: R10.12 Left upper quadrant pain (principal); R19.02 Left upper quadrant abdominal swelling, mass and lump; E27.9 Disorder of adrenal gland, unspecified; R11.0 Nausea; I10 Essential (primary) hypertension; Z98.84 Bariatric surgery status; Z90.49 Acquired absence of other specified parts of digestive tract; Z88.2 Allergy status to sulfonamides; Z87.891 Personal history of nicotine dependence
CPT/HCPCS: 99284; 96374; 96375; 36415; 83690; 85025; 80053; 81001; 74177; J3490; A9270; J2270; J1170; J2405

== ENCOUNTER 2018-10-31 15:35 | Emergency (ER) | payer MEDICARE, MEDICAID ==
--- NOTE | 2018-10-31 15:59 | ER Document Report ---
ED Medical Screen (RME) - General Chief Complaint: Arm Pain Stated Complaint: RIGHT ARM PAIN Time Seen by Provider: 10/31/18 15:55 Primary Care Provider: DIANE MCCORD MD [Primary Care Provider] - Follow up as needed Mode of Arrival: Ambulatory Information source: Patient Notes: This 63-year-old female presents emergency department with right shoulder pain and toothache. Patient has history of chronic right shoulder pain she is feels to be going to [place] to get some surgery done. She reports she was on pain management and received oxy and Esha but she decided to take herself off the pain medication. She now believes she should go back on pain management. She reports she was getting out of the tub yesterday and kind of jerked her shoulder. She also complains of a toothache. I have greeted and performed a rapid initial assessment of this patient. A comprehensive ED assessment and evaluation of the patient, analysis of test results and completion of the medical decision making process will be conducted by additional ED providers. Dictation of this chart was performed using voice recognition software; therefore, there may be some unintended grammatical errors. TRAVEL OUTSIDE OF THE [place] IN LAST 30 DAYS: No - Related Data Allergies/Adverse Reactions: Sulfa (Sulfonamide Antibiotics) Allergy (Verified 10/31/18 15:54) Past Medical History - Past Medical History Cardiac Medical History: Reports: Hx Hypertension Renal/ Medical History: Denies: Hx Peritoneal Dialysis Past Surgical History: Reports: Hx Cholecystectomy, Hx Orthopedic Surgery - back surgery, neck and b/l wrist Physical Exam - Vital signs Vitals: Temp Pulse Resp BP Pulse Ox 97.8 F 75 18 185/72 H 99 10/31/18 15:42 10/31/18 15:42 10/31/18 15:42 10/31/18 15:42 10/31/18 15:42 Course - Vital Signs Vital signs: Temp Pulse Resp BP Pulse Ox 97.8 F 75 18 185/72 H 99 10/31/18 15:42 10/31/18 15:42 10/31/18 15:42 10/31/18 15:42 10/31/18 15:42 Doctor's Discharge - Discharge Referrals: DIANE MCCORD MD [Primary Care Provider] - Follow up as needed
--- NOTE | 2018-10-31 16:49 | RADIOLOGY REPORT (SQ) ---
EXAM DESCRIPTION: SHOULDER RIGHT 2 OR MORE VIEWS COMPLETED DATE/TIME: 10/31/2018 4:29 pm REASON FOR STUDY: pain COMPARISON: None. NUMBER OF VIEWS: Three views. TECHNIQUE: Internal rotation, external rotation, and Y view images acquired of the right shoulder. LIMITATIONS: None. FINDINGS: MINERALIZATION: Normal. BONES: No acute fracture. No worrisome bone lesions. JOINTS: No dislocation. VISUALIZED LUNGS AND RIBS: No pneumothorax. No rib fracture. SOFT TISSUES: No radiopaque foreign body. OTHER: No other significant finding. IMPRESSION: NO RADIOGRAPHIC EVIDENCE OF ACUTE INJURY. TECHNICAL DOCUMENTATION: JOB ID: [id number] [employer]- All Rights Reserved Reading location - IP/workstation name: [email or web address]
[2018-10-31 17:22] VITALS: BP 179/82
--- NOTE | 2018-10-31 17:35 | ER Document Report ---
HPI - HPI Time Seen by Provider: 10/31/18 15:55 Pain Level: 3 Context: Patient is a 63-year-old female who presents to the emergency department with a chief complaint of right shoulder pain. She also states that she has a toothache due to a tooth carried that is on her left upper jaw. According to the previous provider note, the patient had taken herself off pain management, but according to the [place] drug reporting system, she had 30 oxycodone filled on October 25, 2018. She has chronic right shoulder pain. Apparently she was getting out of the tub yesterday and jerked her shoulder. - CONSTITUTIONAL Constitutional: DENIES: Fever, Chills - EENT EENT: DENIES: Sore Throat, Nasal Drainage-Clear Notes: toothache; left upper mouth - CARDIOVASCULAR Cardiovascular: DENIES: Chest pain - RESPIRATORY Respiratory: DENIES: Coughing - MUSCULOSKELETAL Musculoskeletal: REPORTS: Extremity pain - right shoulder. DENIES: Swelling - DERM Skin Color: Normal Skin Problems: None Past Medical History - General Information source: Patient - Social History Smoking Status: Current Some Day Smoker Chew tobacco use (# tins/day): No Frequency of alcohol use: None Drug Abuse: None Family History: Reviewed & Not Pertinent Patient has suicidal ideation: No Patient has homicidal ideation: No - Past Medical History Cardiac Medical History: Reports: Hx Hypertension Renal/ Medical History: Denies: Hx Peritoneal Dialysis Past Surgical History: Reports: Hx Cholecystectomy, Hx Orthopedic Surgery - back surgery, neck and b/l wrist Vertical Provider Document - CONSTITUTIONAL Agree With Documented VS: Yes Exam Limitations: No Limitations General Appearance: No Apparent Distress - INFECTION CONTROL TRAVEL OUTSIDE OF THE [place] IN LAST 30 DAYS: No - HEENT HEENT: Atraumatic, Normal ENT Exam, Normocephalic, PERRLA Mouth Diagram: 1 - tooth carry - NECK Neck: Normal Inspection - RESPIRATORY Respiratory: No Respiratory Distress - CARDIOVASCULAR Cardiovascular: Regular Rate, Regular Rhythm Pulses: Normal: Radial - MUSCULOSKELETAL/EXTREMETIES Musculoskeletal/Extremeties: Tender - Right shoulder, No Edema. negative: FROM - decreased rom to right shoulder, Eccymosis - NEURO Level of Consciousness: Awake, Alert, Appropriate Motor/Sensory: No Motor Deficit, No Sensory Deficit - DERM Integumentary: Warm, Dry, No Rash Course - Re-evaluation Re-evalutation: 10/31/18 17:36 The patient was requesting that the nurse asked myself for some morphine. According to the [place] drug reporting system, the patient received 30 oxycodone on October 25 of this year. Patient states that she is out. Her supply was supposed to last for 15 days and she took 30 pills in 6 days. She did not follow her pain management plan of care. I told her that she needs to follow-up with pain management or her primary care provider in regards to getting her medications refilled. I told the patient that she had 15 days worth of oxycodone and the fact that she is using her medications too fast is a problem. Her x-ray does not show any acute findings. I reprinted her x-ray from a few months ago and handed the results to her. I have advised her to follow-up with the orthopedic doctor in regards to this visit. Patient's physical exam and history is most consistent with a infected tooth. Patient is able to swallow, no facial swelling noted, airway is patent, vital signs are normal. I do not suspect Henry's angina, peritonsilar abscess, or airway obstruction. The patient will be started on oral antibiotics. I have given the patient education on their antibiotics. Patient was given instructions to follow-up with a dentist this week. Follow-up precautions were given. Verbal discharge instructions were given to the patient. They verbalized understanding. They are stable for discharge. - Vital Signs Vital signs: Temp Pulse Resp BP Pulse Ox 98.0 F 70 20 179/82 H 100 10/31/18 17:17 10/31/18 17:17 10/31/18 17:17 10/31/18 17:17 10/31/18 17:17 Procedures - Immobilization Right Shoulder Pre-Proc Neuro Vasc Exam: Normal Immobilizer type: Sling Performed by: PCT Post-Proc Neuro Vasc Exam: Normal, Unchanged from pre-exam Alignment checked and good: Yes Discharge - Discharge Clinical Impression: Tooth pain Right shoulder pain Qualifiers: Chronicity: acute Qualified Code(s): M25.511 - Pain in right shoulder Condition: Stable Disposition: HOME, SELF-CARE Instructions: Penicillin V K ([facility]), Toothache ([facility]) Additional Instructions: You have been seen in the emergency department for a toothache. You may take ibuprofen 600 mg and Tylenol 1000 mg every 6 hours as needed for the pain. You have also been given topical lidocaine. Placed that to the affected tooth as needed to help with pain. You have also been prescribed antibiotics. Please take the antibiotics as prescribed, even if you start to feel better. If you develop a fever greater than 100.4 F, or have any symptoms that are worrisome to you, please return to the emergency department. Please follow-up with a dentist this week in regards to your visit. You are being placed in a sling to help with her shoulder. Please follow-up with your orthopedic in regards to this visit. Please follow-up with your pain management or primary care provider if you would like more pain medication. Prescriptions: Penicillin V Potassium [Penicillin Vk 500 mg Tablet] 500 mg PO QID #40 tablet Referrals: DIANE MCCORD MD [Primary Care Provider] - Follow up as needed
[2018-10-31] MEDS ORDERED: LIDOCAINE 2% VISCOUS SOLN 20 ML UDCUP PO ONE (17:42)
[2018-10-31] MEDS ORDERED: PENICILLIN V POTASSIUM 500 MG TABLET PO ONE (17:42)
== END 2018-10-31 18:05 | disposition home or self-care (01) ==
LOC: ER 15:35
DX: M25.511 Pain in right shoulder (principal); X50.0XXA Overexertion from strenuous movement or load, initial encounter; Y93.89 Activity, other specified; G89.29 Other chronic pain; K02.9 Dental caries, unspecified; K08.89 Other specified disorders of teeth and supporting structures; F17.200 Nicotine dependence, unspecified, uncomplicated; I10 Essential (primary) hypertension
CPT/HCPCS: 99283; 73030; J3490; A9270

== ENCOUNTER → 2019-01-25 | Outpatient (CLI) | payer MEDICARE, MEDICAID ==
--- NOTE | 2019-01-25 16:07 | RADIOLOGY REPORT (SQ) ---
EXAM DESCRIPTION: VENOUS BILATERAL LOWER COMPLETED DATE/TIME: 01/25/2019 3:53 pm REASON FOR STUDY: SWELLING R22.43 LOCALIZED SWELLING, MASS AND LUMP, LOWER LIMB, BILATE COMPARISON: None. TECHNIQUE: Dynamic and static parra scale and color images acquired of both lower extremity venous sy stems. Selected spectral images acquired with additional compression and augmentation maneuvers. Imag es stored on PACS. LIMITATIONS: None. FINDINGS: RIGHT LEG COMMON FEMORAL AND FEMORAL: Normal phasicity, compression and augmentation. No visualized echogenic m aterial on parra scale. No defects on color images. POPLITEAL: Normal compression and augmentation. No visualized echogenic material on parra scale. No de fects on color images. CALF VESSELS: Normal compression and augmentation. No visualized echogenic material on parra scale. No defects on color image. GSV AND SSV: Normal compression. No visualized echogenic material on parra scale. No defects on color images. ANY DEEP VENOUS INSUFFICIENCY: Not evaluated. ANY EVIDENCE OF POPLITEAL CYST: No. OTHER: No other significant finding. LEFT LEG COMMON FEMORAL AND FEMORAL: Normal phasicity, compression and augmentation. No visualized echogenic m aterial on parra scale. No defects on color images. POPLITEAL: Normal compression and augmentation. No visualized echogenic material on parra scale. No de fects on color images. CALF VESSELS: Normal compression and augmentation. No visualized echogenic material on parra scale. No defects on color images. GSV AND SSV: Normal compression. No visualized echogenic material on parra scale. No defects on color images. ANY DEEP VENOUS INSUFFICIENCY: Not evaluated. ANY EVIDENCE POPLITEAL CYST: No. OTHER: No other significant finding. IMPRESSION: NO EVIDENCE DVT OR SVT IN EITHER LEG. TECHNICAL DOCUMENTATION: JOB ID: [id number] [employer]- All Rights Reserved Reading location - IP/workstation name: [email or web address]
== END ==
LOC: SP 14:39
PROVIDERS: ATTEND Internal Medicine
DX: R22.43 Localized swelling, mass and lump, lower limb, bilateral (principal)
CPT/HCPCS: 93970

== ENCOUNTER → 2019-08-16 | Outpatient (CLI) | payer MEDICAID, MEDICARE ==
--- NOTE | 2019-08-16 16:08 | RADIOLOGY REPORT (SQ) ---
EXAM DESCRIPTION: SHOULDER LEFT 2 OR MORE VIEWS IMAGES COMPLETED DATE/TIME: 08/16/2019 2:13 pm REASON FOR STUDY: PAIN IN LT SHOULDER M25.512 PAIN IN LEFT SHOULDER. Chronic pain for several year s. No known injury. COMPARISON: None. NUMBER OF VIEWS: Three views. TECHNIQUE: Internal rotation, external rotation, and Y view images acquired of the left shoulder. LIMITATIONS: None. FINDINGS: MINERALIZATION: Normal. BONES: No acute fracture. No worrisome bone lesions. JOINTS: No dislocation. VISUALIZED LUNGS AND RIBS: No pneumothorax. No rib fracture. SOFT TISSUES: No radiopaque foreign body. OTHER: No other significant finding. IMPRESSION: No radiographic abnormality of the left shoulder. TECHNICAL DOCUMENTATION: JOB ID: [id number] [employer]- All Rights Reserved Reading location - IP/workstation name: [email or web address]
== END ==
LOC: OD 14:43
PROVIDERS: ATTEND Physician Assistant
DX: M25.512 Pain in left shoulder (principal)